=== PATIENT | female | born 1970 | race African-American/Black ===

== ENCOUNTER 2017-10-16 02:18 | Emergency (ER) | payer OTHER ==
[~2017-10-16] VITALS: Ht 157.5 cm; Wt 99.6 kg
[2017-10-16 03:57] LABS: HEMATOCRIT 32.9 % (36.0-46.0); HEMOGLOBIN 10.5 G/DL (11.9-15.5); MCH 24.1 PG (29.0-34.0); MCHC 31.9 G/DL (30.0-36.0); MCV 75.5 FL (83-99); PLATELET COUNT 333 K/uL (156-360); RBC DIS.WIDTH-CV 13.5 % (11.8-14.6); RBC DIS.WIDTH-SD 36.6 % (39-53); RED BLOOD COUNT 4.36 M/uL (3.80-5.20); WHITE BLOOD COUNT 8.1 K/uL (4.1-10.2)
[2017-10-16 04:08] LABS: CHLORIDE 103 mEq/L (99-109); SODIUM 141 mEq/L (136-147)
[2017-10-16 04:10] LABS: GLUCOSE 156 mg/dL (70-99)
[2017-10-16 04:13] LABS: CREATININE 0.8 mg/dL (0.6-1.3); GFR ESTIMATE (CALCULATED) > 59 mL/min/
[2017-10-16 04:14] LABS: UREA NITROGEN (BUN) 12 mg/dL (9-23)
[2017-10-16 06:15] VITALS: BP 139/88
== END 2017-10-16 06:15 | disposition home or self-care (01) ==
LOC: EME 02:18
PROVIDERS: Emergency Medicine
DX: E86.0 Dehydration (principal); R55 Syncope and collapse; R42 Dizziness and giddiness; R51 Headache; Z90.710 Acquired absence of both cervix and uterus
CPT/HCPCS: 70450; 80048; 85027; 99281; 99285; J1885; J2405; J7030